=== PATIENT | male | born 1990 | race Caucasian/White ===

== ENCOUNTER 2016-12-31 16:46 | Emergency (ER) | payer MEDICAID, OTHER ==
[~2016-12-31] VITALS: Ht 170.2 cm; Wt 68.0 kg
[2016-12-31 17:02] VITALS: BP 109/65
--- NOTE | 2016-12-31 17:31 | Emergency Room Report ---
History of Present Illness General Chief Complaint: Flu Like Symptoms Source: Patient Present Illness HPI 26 YO male presents to the emergency department complaining of 5/10 in severity sore throat, and increased because production, cough, body aches, diarrhea x3 days. Patient states he began to notice some mild symptoms prior to returning home from recent [place] trip. Patient denies fevers or chills, denies neck pain or stiffness. Denies headache. He states he is not up-to-date with his most recent flu vaccination. He denies abdominal tenderness denies blood in the stool denies nausea or vomiting. Denies CP, Palpitations, LOC, AMS, dizziness, Changes in Vision, Sensation, paresthesias, or a sudden severe headache. Allergies: Coded Allergies: No Known Allergies (Unverified , 12/31/16) Patient History Past Medical History: see triage record Past Surgical History: none Pertinent Family History: none Immunizations: other - no flu this year Reviewed Nursing Documentation: PMH: Agreed, PSxH: Agreed Nursing Documentation-PMH Past Medical History: No Stated History Review of Systems All Other Systems: negative except mentioned in HPI Physical Exam Vital Signs Date Time Temp Pulse Resp B/P (MAP) Pulse Ox O2 Delivery O2 Flow Rate FiO2 12/31/16 17:02 98.8 78 20 109/65 98 Room Air Sp02 EP Interpretation: reviewed, normal General Appearance: no apparent distress, alert, GCS 15, non-toxic Head: normocephalic, atraumatic Eyes: bilateral eye normal inspection, bilateral eye PERRL ENT: hearing grossly normal, normal pharynx, no angioedema, normal voice, TMs + canals normal, uvula midline, moist mucus membranes, nasal congestion - clear rhinorrhea bilaterally, pharyngeal erythema, other - no exudates Neck: full range of motion, no meningismus, supple/symm/no masses Respiratory: chest non-tender, lungs clear, normal breath sounds, no respiratory distress, no wheezing, speaking full sentences Cardiovascular #1: regular rate, rhythm Gastrointestinal: normal bowel sounds, non tender, soft, no guarding, no rebound Rectal: deferred Genitourinary: normal inspection, no CVA tenderness Musculoskeletal: back normal, gait/station normal, normal range of motion, non- tender Neurologic: alert, oriented x3, responsive, motor strength/tone normal, sensory intact, speech normal Psychiatric: judgement/insight normal, memory normal, mood/affect normal Skin: normal color, no rash, warm/dry, well hydrated Lymphatic: no adenopathy Medical Decision Making PA Attestation Dr. victoria is my supervising Physician whom patient management has been discussed with. Diagnostic Impression: Primary Impression: Pharyngitis with viral syndrome ER Course Pt. presents to the ED c/o : sore throat, tonsillar swelling, and nasal congestion x 2 days Ddx considered but are not limited to: pharyngitis, strep, FITTER / WELDER, ludwigs angina, URI Vital signs: are WNL, pt. is afebrile H&PE are most consistent with: pharyngitis pwith viral syndrome, and enteritis, pt. has benign abdominal exam. he does not meet Centor criteria, and does not have meningeal signs. lungs are CTA bilaterally. ORDERS: None required at this time as the diagnosis is clinical ED INTERVENTIONS: none required at this time. --d/w pt. Bacterial Vs. Viral illnesses and over rx'ing of abx leading to bacterial resistance. DISCHARGE: At this time pt. is stable for d/c to home. Will provide printed patient care instructions, and any necessary prescriptions. Care plan and follow up instructions have been discussed with the patient prior to discharge. Last Vital Signs Date Time Temp Pulse Resp B/P (MAP) Pulse Ox O2 Delivery O2 Flow Rate FiO2 12/31/16 17:20 78 20 Room Air 12/31/16 17:02 98.8 109/65 98 Disposition: HOME, SELF-CARE Condition: Stable Scripts Guaifenesin (Guaifenesin) 1,200 Mg Tab.er.12h 1200 MG PO BID for 10 Days, #20 TAB Prov: Benita Miles P.ALilian 12/31/16 Dicyclomine Hcl* (BENTYL*) 10 Mg Capsule 10 MG ORAL FOUR TIMES A DAY for 3 Days, #9 CAP Prov: Benita Miles P.ALilian 12/31/16 Codeine/Promethazine Hcl* (PROMETHAZINE-CODEINE SYRUP*) 118 Ml Syrup 10 ML ORAL Q6H Y for For Cough, #240 ML 0 Refills Prov: Benita Miles.ALilian 12/31/16 Patient Instructions: Pharyngitis, Viral Respiratory Infection Additional Instructions: Take medications as directed. Follow up with a Primary Care Provider in 3-5 days, even if your symptoms have resolved. --Please review list of primary care clinics, if you do not already have a primary care provider Return sooner to ED if new symptoms occur, or current symptoms become worse. Do not drink alcohol, drive, or operate heavy machinery while taking Cough Syrup as this may cause drowsiness. - Please note that this Emergency Department Report was dictated using [employer] professional technology software, occasionally this can lead to erroneous entry secondary to interpretation by the dictation equipment. Benita Miles Dec 31, 2016 17:31
[2016-12-31] MEDS ORDERED: GUAIFENESIN1200 MG PO (17:32)
[2016-12-31] MEDS ORDERED: PROMETHAZINE-C118 M1 ORAL (17:32)
[2016-12-31] MEDS ORDERED: BENTYL10 MG ORAL (17:32)
[2016-12-31 18:17] VITALS: BP 109/65
== END 2016-12-31 18:20 | disposition home or self-care (01) ==
LOC: EDBD 16:46 → EMR 17:45
DX: J02.9 Acute pharyngitis, unspecified (principal); B34.9 Viral infection, unspecified; R19.7 Diarrhea, unspecified
CPT/HCPCS: 99284

== ENCOUNTER 2017-02-01 14:29 | Emergency (ER) | payer OTHER ==
[~2017-02-01] VITALS: Ht 170.2 cm; Wt 66.2 kg
[~2017-02-01 14:29] MED LIST: BENTYL10 MG ORAL; GUAIFENESIN1200 MG PO; PROMETHAZINE-C118 M1 ORAL
[2017-02-01 14:35] VITALS: BP 127/73
[2017-02-01] MEDS ORDERED: Lidocaine 2% Visc 15ml soln ORAL ONE (14:45)
[2017-02-01] MEDS ORDERED: Mylanta II UD 30ml ORAL ONE (14:45)
[2017-02-01] MEDS ORDERED: REGLAN10 MG ORAL (14:47)
[2017-02-01] MEDS ORDERED: PEPCID40 MG PO (14:47)
--- NOTE | 2017-02-01 14:52 | Emergency Room Report ---
History of Present Illness General Chief Complaint: Pain Source: Patient Present Illness HPI 26YOM walk-in with stomach "cramps" since yesterday morning Some nausea with gas and "indigestion." Drank "a lot" thursday night - mixed wine and tequilla. Eating makes it worse No other med/surg problems No fever/chills, urinary complaints, foreign travel Allergies: Coded Allergies: No Known Allergies (Unverified , 12/31/16) Patient History Past Medical History: none Past Surgical History: none Pertinent Family History: none Social History: Denies: smoking, alcohol use, drug use Immunizations: UTD Reviewed Nursing Documentation: PMH: Agreed, PSxH: Agreed Nursing Documentation-PMH Past Medical History: No Stated History Hx Cardiac Problems: No Review of Systems All Other Systems: negative except mentioned in HPI Physical Exam Vital Signs Date Time Temp Pulse Resp B/P (MAP) Pulse Ox O2 Delivery O2 Flow Rate FiO2 02/01/17 14:31 98.1 73 18 127/73 96 Room Air Sp02 EP Interpretation: reviewed, normal General Appearance: normal inspection, well appearing, no apparent distress, alert, GCS 15, non-toxic Head: normocephalic, atraumatic Eyes: bilateral eye PERRL, bilateral eye EOMI ENT: normal ENT inspection, hearing grossly normal, normal voice Neck: normal inspection, full range of motion, supple, no bony tend Respiratory: normal inspection, lungs clear, normal breath sounds, no respiratory distress, no retraction, no wheezing Cardiovascular #1: regular rate, rhythm, no edema Gastrointestinal: normal inspection, normal bowel sounds, non tender, soft, no guarding, no hernia Genitourinary: no CVA tenderness Musculoskeletal: normal inspection, back normal, normal range of motion, Marisabel' s Sign negative Neurologic: normal inspection, alert, responsive, speech normal Psychiatric: normal inspection, judgement/insight normal, mood/affect normal Skin: normal inspection, normal color, no rash Medical Decision Making Diagnostic Impression: Primary Impression: Gastritis Qualified Codes: K29.20 - Alcoholic gastritis without bleeding ER Course Likely acute ETOH gastritis VSS. Afebrile Abdomen non focal on serial exam No surgical risk factors Low suspicion for acute bacterial/surgical process requiring additional lab work , imaging, admission and/or surgical evaluation at this time given well appearing, non-focal abd on serial exam, stable vital signs, and tolerating PO. In shared decision making process with patient, understands to return to ER for worsening symptoms and to followup with PMD in reasonable amount of time, 2-3 days. Improved with GI cocktail in ED Rx reglan, pepcid PMD followup Return to ER for worsening symptoms Last Vital Signs Date Time Temp Pulse Resp B/P (MAP) Pulse Ox O2 Delivery O2 Flow Rate FiO2 02/01/17 14:31 98.1 73 18 127/73 96 Room Air Status: improved Disposition: HOME, SELF-CARE Condition: Improved Scripts Famotidine (PEPCID) 40 Mg Tablet 40 MG PO DAILY for 7 Days, #7 TAB 0 Refills Prov: PRIYANKA BRAVO M.D. 02/01/17 Metoclopramide Hcl* (REGLAN*) 10 Mg Tablet 10 MG ORAL BID for 7 Days, #14 TAB Prov: PRIYANKA BRAVO M.D. 02/01/17 Patient Instructions: Gastritis, Adult, [id number] Additional Instructions: - Drink water/miladis star ONLY today - Start bland food tomorrow, crackers, chicken broth ONLY until you feel completel better - Take Pepcid 40mg each morning for 7 days or until you feel better - Take reglan as needed for nausea - Follow up with your PRIMARY DOCTOR in 2-3 days as needed - Return to ER for severe abdominal pain located on ONE side of your abdomen, fever/chills, vomiting that do NOT resolve with medication PRIYANKA BRAVO M.D. Feb 01, 2017 14:52
[2017-02-01 14:55] VITALS: BP 127/73
== END 2017-02-01 15:15 | disposition home or self-care (01) ==
LOC: EMR 14:42
DX: K29.70 Gastritis, unspecified, without bleeding (principal)
CPT/HCPCS: 99284

== ENCOUNTER 2017-02-04 10:43 | Emergency (ER) | payer OTHER ==
[~2017-02-04] VITALS: Ht 170.2 cm; Wt 68.0 kg
[~2017-02-04 10:43] MED LIST changes: +PEPCID40 MG PO; +REGLAN10 MG ORAL
[2017-02-04 10:49] VITALS: BP 109/55
[2017-02-04 12:00] VITALS: BP 109/55
--- NOTE | 2017-02-05 09:12 | Emergency Room Report ---
History of Present Illness General Chief Complaint: Sore Throat Source: Patient, Medical Record Present Illness HPI 26 yo M nos ig pmhx p/w sore throat x 2 days. hurts when he swallows however has been able to tolerate po without issue. no fever or chills. no change in voice. no sick contacts Allergies: Coded Allergies: No Known Allergies (Unverified , 12/31/16) Patient History Past Medical History: see triage record Past Surgical History: none Pertinent Family History: none Reviewed Nursing Documentation: PMH: Agreed, PSxH: Agreed Nursing Documentation-PMH Past Medical History: No Stated History Hx Cardiac Problems: No Review of Systems All Other Systems: negative except mentioned in HPI Physical Exam Vital Signs Date Time Temp Pulse Resp B/P (MAP) Pulse Ox O2 Delivery O2 Flow Rate FiO2 02/04/17 10:46 97.7 69 18 109/55 99 Room Air Sp02 EP Interpretation: reviewed, normal General Appearance: normal inspection, well appearing, no apparent distress, alert, GCS 15, non-toxic Head: normocephalic, atraumatic Eyes: bilateral eye normal inspection, bilateral eye PERRL, bilateral eye EOMI ENT: normal voice, moist mucus membranes, pharyngeal erythema, other - erythema no exudates. no signs of riverboat captain Neck: normal inspection, full range of motion, supple Respiratory: normal inspection, lungs clear, normal breath sounds, no respiratory distress, no retraction, no wheezing, speaking full sentences, chest symmetrical Cardiovascular #1: normal inspection, regular rate, rhythm, no edema, normal capillary refill Cardiovascular #2: 2+ radial (R), 2+ radial (L) Gastrointestinal: normal inspection, non tender, soft, non-distended, no guarding Musculoskeletal: normal inspection, back normal, normal range of motion, non- tender Neurologic: normal inspection, alert, oriented x3, responsive, motor strength/ tone normal, sensory intact, normal gait, speech normal Psychiatric: normal inspection, judgement/insight normal, memory normal Skin: normal inspection, normal color, no rash, warm/dry, well hydrated, normal turgor Medical Decision Making Diagnostic Impression: Primary Impression: Viral pharyngitis ER Course 26 yo M with sore throat x 2 days likely viral pharyngitis, clinically does not appear to be bacterial, no signs of riverboat captain not c/w RPA no pain with extension/movement of neck. nontoxic ER course: patient prescribed motrin but left before meds can be given or discharge papers to be given Dispo: Eloped after physician eval Last Vital Signs Date Time Temp Pulse Resp B/P (MAP) Pulse Ox O2 Delivery O2 Flow Rate FiO2 02/04/17 10:49 97.7 18 109/55 99 Room Air 02/04/17 10:46 69 Disposition: ELOPED Condition: Stable Patient Instructions: Sore Throat Shilpa Appiah M.D. Feb 05, 2017 09:12
== END 2017-02-04 12:00 | disposition home or self-care (01) ==
LOC: EMR 11:16
DX: J02.8 Acute pharyngitis due to other specified organisms (principal); B97.89 Other viral agents as the cause of diseases classified elsewhere
CPT/HCPCS: 99282

== ENCOUNTER 2017-04-23 12:24 | Emergency (ER) | payer MEDICAID, OTHER ==
[~2017-04-23] VITALS: Ht 170.2 cm; Wt 74.4 kg
[2017-04-23] MEDS ORDERED: NKM (12:33)
[2017-04-23] MEDS ORDERED: IBUPROFEN600 MG ORAL (12:57)
[2017-04-23] MEDS ORDERED: TAMIFLU75 MG ORAL (12:57)
[2017-04-23] MEDS ORDERED: Lidocaine 2% Visc 15ml soln ORAL ONE (13:00)
[2017-04-23 13:24] VITALS: BP 105/65
--- NOTE | 2017-04-24 13:06 | Emergency Room Report ---
History of Present Illness General Chief Complaint: Sore Throat Source: Patient Present Illness HPI 26 yo male presents to ED complaining of flu-like symptoms x1 day. Patient complains of subjective fever, sore throat, generalized fatigue, and nausea. Patient complains of dry cough and SWANSON during this time. Patient denies recent travel. Patient denies neck stiffness. Patient denies history of sick contacts living in the same house. Patient denies vomiting, diarrhea, chest pain, SOB, rash. Allergies: Coded Allergies: No Known Allergies (Unverified , 12/31/16) Patient History Past Medical History: see triage record Social History: Denies: smoking, alcohol use, drug use Immunizations: UTD Reviewed Nursing Documentation: PMH: Agreed, PSxH: Agreed Nursing Documentation-PMH Past Medical History: No Stated History Hx Cardiac Problems: No Review of Systems All Other Systems: negative except mentioned in HPI Physical Exam Vital Signs Date Time Temp Pulse Resp B/P (MAP) Pulse Ox O2 Delivery O2 Flow Rate FiO2 04/23/17 12:28 100.2 98 14 107/63 100 Room Air Sp02 EP Interpretation: reviewed, normal General Appearance: alert, GCS 15, non-toxic, mild distress Head: normocephalic, atraumatic Eyes: bilateral eye normal inspection, bilateral eye PERRL, bilateral eye EOMI ENT: hearing grossly normal, normal pharynx, no angioedema, normal voice, TMs + canals normal, uvula midline, moist mucus membranes, pharyngeal erythema Neck: full range of motion, supple/symm/no masses Respiratory: chest non-tender, lungs clear, normal breath sounds, no respiratory distress, no retraction, no accessory muscle use, no wheezing, speaking full sentences Cardiovascular #1: regular rate, rhythm, no murmur, no rub Gastrointestinal: non tender, soft, non-distended, no guarding, no rebound Musculoskeletal: digits/nails normal, gait/station normal, normal range of motion, non-tender Neurologic: alert, oriented x3, responsive, motor strength/tone normal, sensory intact, speech normal Psychiatric: mood/affect normal Skin: normal color, no rash, warm/dry, well hydrated Lymphatic: no adenopathy Medical Decision Making PA Attestation Dr. Appiah is my supervising physician with whom patient management has been discussed with. Diagnostic Impression: Primary Impression: Viral upper respiratory illness ER Course Pt presents to ED c/o flu-like symptoms. DDX considered but are not limited to influenza, viral URI, pneumonia, strep throat, rhinitis, sinusitis, otitis media. VITAL SIGNS are WNL, patient is afebrile. ORDERS: None required at this time, diagnosis is clinical. ED INTERVENTIONS: Viscous lidocaine Ibuprofen Zofran DISCHARGE: At this time pt is stable for d/c to home. -Rx given for Motrin/Ibuprofen for fever/pain. -Rx given for Tamiflu for influenza. Patient to take medications as instructed Will provide with patient care instructions and any necessary prescriptions. Care plan and follow-up instructions provided. Patient instructed to follow-up with primary care provider in 3 - 5 days. Patient questions asked and answered. ER precautions given. Patient instructed to return to ER immediately for any new or worsening of symptoms including but not limited to increasing SOB, persistent fever. Last Vital Signs Date Time Temp Pulse Resp B/P (MAP) Pulse Ox O2 Delivery O2 Flow Rate FiO2 04/23/17 13:24 86 18 105/65 97 Room Air 04/23/17 13:24 98.3 Disposition: HOME, SELF-CARE Condition: Stable Scripts Oseltamivir Phosphate (Tamiflu) 75 Mg Capsule 75 MG ORAL TWICE A DAY for 5 Days, #10 CAP Prov: Nate Armijo 04/23/17 Ibuprofen* (MOTRIN*) 600 Mg Tablet 600 MG ORAL Q8H Y for For Pain, #30 TAB 0 Refills Prov: Nate Armijo 04/23/17 Referrals: [facility],REFERRIN (PCP) Patient Instructions: Influenza, Adult, [id number] Additional Instructions: Patient to take medications as instructed Will provide with patient care instructions and any necessary prescriptions. Care plan and follow-up instructions provided. Patient instructed to follow-up with primary care provider in 3 - 5 days. Patient questions asked and answered. ER precautions given. Patient instructed to return to ER immediately for any new or worsening of symptoms including but not limited to increasing SOB, persistent fever. Nate Armijo Apr 24, 2017 13:06
[2017-04-24] MEDS ORDERED: AMOXICILLIN500 MG ORAL (14:25)
[2017-04-24] MEDS ORDERED: TYLENOL EXTRA500 MG ORAL (14:28)
== END 2017-04-23 13:26 | disposition home or self-care (01) ==
LOC: EMR 12:55
DX: J06.9 Acute upper respiratory infection, unspecified (principal); B34.9 Viral infection, unspecified
CPT/HCPCS: 99283

== ENCOUNTER 2017-04-24 13:45 | Emergency (ER) | payer MEDICAID, OTHER ==
[~2017-04-24] VITALS: Ht 170.2 cm; Wt 72.6 kg
[~2017-04-24 13:45] MED LIST changes: +IBUPROFEN600 MG ORAL; +NKM; +TAMIFLU75 MG ORAL
[2017-04-24 13:56] VITALS: BP 110/67
[2017-04-24] MEDS ORDERED: Ketorolac 60mg Inj IM ONE (14:15)
[2017-04-24] MEDS ORDERED: AMOXICILLIN500 MG ORAL (14:25)
[2017-04-24] MEDS ORDERED: TYLENOL EXTRA500 MG ORAL (14:28)
[2017-04-24 14:30] VITALS: BP 110/67
--- NOTE | 2017-04-24 15:26 | Emergency Room Report ---
History of Present Illness General Chief Complaint: Sore Throat Source: Patient Present Illness [facility] The patient is a 26-year-old male presenting for continued sore throat and cough. He was seen in this emergency Department yesterday for the same complaints and diagnosed with influenza. Pain is a 9/10 dull ache to the back of the throat and does not radiate. Worse with swallowing. He also admits to some nausea and fevers. Symptoms have been present for the past week. He denies any known sick contacts or recent travel. He denies other symptoms including hemoptysis, shortness of breath, chest pain, abdominal pain, myalgia, headache, fatigue Allergies: Coded Allergies: No Known Allergies (Unverified , 12/31/16) Patient History Past Medical History: see triage record Pertinent Family History: none Reviewed Nursing Documentation: PMH: Agreed, PSxH: Agreed Nursing Documentation-PMH Past Medical History: No Stated History Hx Cardiac Problems: No Review of Systems All Other Systems: negative except mentioned in HPI Physical Exam Vital Signs Date Time Temp Pulse Resp B/P (MAP) Pulse Ox O2 Delivery O2 Flow Rate FiO2 04/24/17 13:49 99.7 106 18 110/69 96 Room Air Sp02 EP Interpretation: reviewed, normal General Appearance: no apparent distress, alert, GCS 15, non-toxic Head: normocephalic, atraumatic Eyes: bilateral eye normal inspection, bilateral eye PERRL ENT: hearing grossly normal, no angioedema, normal voice, uvula midline, tonsillar swelling, pharyngeal erythema, tonsillar exudate Neck: full range of motion, supple/symm/no masses Respiratory: chest non-tender, lungs clear, normal breath sounds, speaking full sentences Cardiovascular #1: regular rate, rhythm, no edema Musculoskeletal: back normal, gait/station normal, normal range of motion, non- tender, calf tenderness Neurologic: alert, oriented x3, responsive, motor strength/tone normal, sensory intact, speech normal Psychiatric: judgement/insight normal, memory normal, mood/affect normal, no suicidal/homicidal ideation Skin: normal color, no rash, warm/dry, well hydrated Lymphatic: adenopathy Medical Decision Making PA Attestation Dr. Aviles is my supervising physician. Patient management was discussed with my supervising physician Diagnostic Impression: Primary Impression: Pharyngitis, acute Qualified Codes: J02.9 - Acute pharyngitis, unspecified ER Course The patient is a 26-year-old male presenting for continued sore throat and cough. Differential diagnosis include but not limited to pharyngitis, sinusitis, AOM, bronchitis, PNA Physical exam: Vitals within normal limits. febrile. No apparent distress HEENT exam: There is bilateral tonsillar edema, erythema, and exudate. Uvula midline. Moist mucous membranes. There is bilateral cervical lymphadenopathy. Lungs are clear to auscultation bilaterally Skin is warm and dry. No rash The patient will stop taking Tamiflu as this is unlikely to be influenza He is given IM Toradol, amoxicillin and Zofran and is feeling better. The patient will be discharged home with a prescription for amoxicillin and is given ER precautions. Patient will followup with primary care Last Vital Signs Date Time Temp Pulse Resp B/P (MAP) Pulse Ox O2 Delivery O2 Flow Rate FiO2 04/24/17 14:30 99.7 72 18 110/67 96 Room Air Status: improved Disposition: HOME, SELF-CARE Condition: Improved Scripts Acetaminophen* (TYLENOL EXTRA STRENGTH*) 500 Mg Tablet 500 MG ORAL Q8H Y for Prn Headache/Temp > 101, #30 TAB 0 Refills Prov: GOLD CHAPPELL. 04/24/17 Amoxicillin* (AMOXIL*) 500 Mg Capsule 500 MG ORAL Q12HR, #20 CAP Prov: GOLD CHAPPELL.A. 04/24/17 Referrals: [facility],REFERRIN (PCP) Patient Instructions: Pharyngitis, Sore Throat Additional Instructions: I discussed my findings with the patient. All questions and concerns have been answered. Treatment and medication compliance have been addressed. I advised the patient that they need to follow up with PMD in 3-5 days. Return to ED if pain remains or worsens, cough worsens or remains, you notice blood in your sputum, you notice wheezing, you experience a fever, or if needed for any reason. Patient verbalized understanding of discharge instructions. GOLD CHAPPELL Apr 24, 2017 15:26
== END 2017-04-24 14:30 | disposition home or self-care (01) ==
LOC: EMR 14:18
DX: J02.9 Acute pharyngitis, unspecified (principal)
CPT/HCPCS: 96372; 99284

== ENCOUNTER 2017-06-05 10:24 | Emergency (ER) | payer MEDICAID, OTHER ==
[~2017-06-05] VITALS: Ht 170.2 cm; Wt 72.6 kg
[~2017-06-05 10:24] MED LIST changes: +AMOXICILLIN500 MG ORAL; +TYLENOL EXTRA500 MG ORAL
[2017-06-05 10:47] VITALS: BP 121/73
[2017-06-05 11:30] LABS: BASOPHILS % (AUTO) 0.7 % (0.0-2.0); EOSINOPHILS % (AUTO) 0.1 % (0.0-3.0); HEMATOCRIT 47.4 % (42.0-52.0); HEMOGLOBIN 16.9 G/DL (14.2-18.0); LYMPHOCYTES % (AUTO) 14.7 % (20.0-45.0); MEAN CORPUSCULAR VOLUME 89 FL (80-99); NEUTROPHILS % (AUTO) 78.5 % (45.0-75.0); PLATELET COUNT 191 K/UL (150-450); RED BLOOD COUNT 5.33 M/UL (4.70-6.10); RED CELL DISTRIBUTION WIDTH 11.6 % (11.6-14.8); WHITE BLOOD COUNT 9.6 K/UL (4.8-10.8)
[2017-06-05 11:44] LABS: ANION GAP 6 mmol/L (5-15); BLOOD UREA NITROGEN 10 mg/dL (7-18); CALCIUM 9.2 MG/DL (8.5-10.1); CARBON DIOXIDE 33 MMOL/L (21-32); CHLORIDE 103 MMOL/L (98-107); CREATININE 0.8 MG/DL (0.55-1.30); POTASSIUM 4.1 MMOL/L (3.5-5.1); SODIUM 142 MMOL/L (136-145)
[2017-06-05 11:48] LABS: ALANINE AMINOTRANSFERASE 41 U/L (12-78); ALBUMIN 4.3 G/DL (3.4-5.0); ALBUMIN/GLOBULIN RATIO 1.3 (1.0-2.7); ALKALINE PHOSPHATASE 64 U/L (46-116); ASPARTATE AMINO TRANSFERASE 29 U/L (15-37); BILIRUBIN,TOTAL 0.6 MG/DL (0.2-1.0)
[2017-06-05] MEDS ORDERED: ZANTAC150 MG ORAL (12:06)
[2017-06-05] MEDS ORDERED: ZOFRAN ODT4 MG ORAL (12:06)
[2017-06-05 12:17] VITALS: BP 120/61
--- NOTE | 2017-06-06 13:54 | Emergency Room Report ---
History of Present Illness General Chief Complaint: Nausea Source: Patient Present Illness HPI 26-year-old male presents ED for evaluation. Patient states that he drank a lot of wine last night and today he feels very nauseous and weak. Patient also notes vomiting this morning. Denies any abdominal pain. Denies any drug use. Denies chest pain or shortness of breath. No other aggravating or relieving factors. Denies any other associated symptoms Allergies: Coded Allergies: No Known Allergies (Unverified , 12/31/16) Patient History Past Medical History: none Past Surgical History: none Pertinent Family History: none Social History: Reports: alcohol use, Denies: smoking, drug use Immunizations: UTD Reviewed Nursing Documentation: PMH: Agreed, PSxH: Agreed Nursing Documentation-PMH Past Medical History: No Stated History Hx Cardiac Problems: No Review of Systems All Other Systems: negative except mentioned in HPI Physical Exam Vital Signs Date Time Temp Pulse Resp B/P (MAP) Pulse Ox O2 Delivery O2 Flow Rate FiO2 06/05/17 10:25 98.6 97 18 110/72 97 Room Air 98.6 Sp02 EP Interpretation: reviewed, normal General Appearance: no apparent distress, alert, GCS 15, non-toxic Head: normocephalic, atraumatic Eyes: bilateral eye normal inspection, bilateral eye PERRL ENT: hearing grossly normal, normal pharynx, no angioedema, normal voice Neck: full range of motion, supple/symm/no masses Respiratory: chest non-tender, lungs clear, normal breath sounds, speaking full sentences Cardiovascular #1: regular rate, rhythm, no edema Cardiovascular #2: 2+ carotid (R), 2+ carotid (L), 2+ radial (R), 2+ radial (L) , 2+ dorsalis pedis (R), 2+ dorsalis pedis (L) Gastrointestinal: normal bowel sounds, non tender, soft, non-distended, no guarding, no rebound Rectal: deferred Genitourinary: normal inspection, no CVA tenderness Musculoskeletal: back normal, gait/station normal, normal range of motion, non- tender Neurologic: alert, oriented x3, responsive, motor strength/tone normal, sensory intact, speech normal Psychiatric: judgement/insight normal, memory normal, mood/affect normal, no suicidal/homicidal ideation Reflexes: 3+ bicep (R), 3+ bicep (L), 3+ tricep (R), 3+ tricep (L), 3+ knee (R) , 3+ knee (L) Skin: normal color, no rash, warm/dry, well hydrated Lymphatic: no adenopathy Medical Decision Making Diagnostic Impression: Primary Impression: Gastritis Qualified Codes: K29.20 - Alcoholic gastritis without bleeding ER Course Hospital Course 26-year-old M presents to ED with N/V after drinking wine last night differential diagnosis: gastritis, SBO, cholecystits Clinical course Patient placed on stretcher. On vehicle monitor technician. After initial history and physical I ordered labs, IV fluids, Zofran and pepcid Labs - no leukocytosis, no electrolyte abnormalities, LFTs normal Upon reassessment, patient states pain has improved. findings consistent with gastritis I feel this is a highly complex case requiring extensive working including EKG/ Rhythm strip, Xray/CT/US, Blood/urine lab work, repeat exams while in ED, and administration of strong opiates/narcotics for pain control, admission to hospital or close patient follow up. Diagnosis - gastritis Stable and discharged to home with prescriptions for Zantac, zofran. Followup with PMD. Return to ED if symptoms recur or worsen Labs Test 06/05/17 11:16 White Blood Count 9.6 K/UL (4.8-10.8) Red Blood Count 5.33 M/UL (4.70-6.10) Hemoglobin 16.9 G/DL (14.2-18.0) Hematocrit 47.4 % (42.0-52.0) Mean Corpuscular Volume 89 FL (80-99) Mean Corpuscular Hemoglobin 31.7 PG (27.0-31.0) Mean Corpuscular Hemoglobin Concent 35.6 G/DL (32.0-36.0) Red Cell Distribution Width 11.6 % (11.6-14.8) Platelet Count 191 K/UL (150-450) Mean Platelet Volume 8.7 FL (6.5-10.1) Neutrophils (%) (Auto) 78.5 % (45.0-75.0) Lymphocytes (%) (Auto) 14.7 % (20.0-45.0) Monocytes (%) (Auto) 6.0 % (1.0-10.0) Eosinophils (%) (Auto) 0.1 % (0.0-3.0) Basophils (%) (Auto) 0.7 % (0.0-2.0) Sodium Level 142 MMOL/L (136-145) Potassium Level 4.1 MMOL/L (3.5-5.1) Chloride Level 103 MMOL/L (98-107) Carbon Dioxide Level 33 MMOL/L (21-32) Anion Gap 6 mmol/L (5-15) Blood Urea Nitrogen 10 mg/dL (7-18) Creatinine 0.8 MG/DL (0.55-1.30) Estimat Glomerular Filtration Rate > 60 mL/min (>60) Glucose Level 74 MG/DL (74-106) Calcium Level 9.2 MG/DL (8.5-10.1) Total Bilirubin 0.6 MG/DL (0.2-1.0) Aspartate Amino Transf (AST/SGOT) 29 U/L (15-37) Alanine Aminotransferase (ALT/SGPT) 41 U/L (12-78) Alkaline Phosphatase 64 U/L (46-116) Total Protein 7.6 G/DL (6.4-8.2) Albumin 4.3 G/DL (3.4-5.0) Globulin 3.3 g/dL Albumin/Globulin Ratio 1.3 (1.0-2.7) Lipase 100 U/L (73-393) Last Vital Signs Date Time Temp Pulse Resp B/P (MAP) Pulse Ox O2 Delivery O2 Flow Rate FiO2 06/05/17 12:17 100 26 120/61 100 Room Air 06/05/17 11:47 98.3 Status: improved Disposition: HOME, SELF-CARE Condition: Stable Scripts Ondansetron Odt* (ZOFRAN ODT*) 4 Mg Tab.rapdis 4 MG ORAL Q6H Y for Nausea & Vomiting, #30 TAB 0 Refills Prov: LE OLVERA M.D. 06/05/17 Ranitidine Hcl* (ZANTAC*) 150 Mg Tablet 150 MG ORAL DAILY, #30 TAB 0 Refills Prov: LE OLVERA M.D. 06/05/17 Referrals: NOT CHOSEN [facility]/,REFERRING Patient Instructions: Gastritis, Adult, [id number] LE OLVERA M.D. Jun 06, 2017 13:54
== END 2017-06-05 12:20 | disposition home or self-care (01) ==
LOC: EMR 11:18
DX: K29.70 Gastritis, unspecified, without bleeding (principal)
CPT/HCPCS: 36415; 80053; 83690; 85025; 96361; 96374; 96375; 99284; J2405; S0028

== ENCOUNTER 2017-07-19 13:15 | Emergency (ER) | payer MEDICAID, OTHER ==
[~2017-07-19] VITALS: Ht 170.2 cm; Wt 77.1 kg
[~2017-07-19 13:15] MED LIST changes: +ZANTAC150 MG ORAL; +ZOFRAN ODT4 MG ORAL
[2017-07-19] MEDS ORDERED: Norco 5mg/325mg tab ORAL ONE (14:30)
[2017-07-19] MEDS ORDERED: NORCO 5-325 TA1 EAC1 ORAL (15:05)
[2017-07-19] MEDS ORDERED: IBUPROFEN600 MG ORAL (15:05)
[2017-07-19 15:15] VITALS: BP 118/74
[2017-07-19 15:16] VITALS: BP 118/74
--- NOTE | 2017-07-19 20:07 | Emergency Room Report ---
History of Present Illness General Chief Complaint: Pain Source: Patient Present Illness [facility] The patient is a 27-year-old male presenting for right shoulder pain. He states that this began yesterday for no apparent reason. He denies any recent physical activity that may have caused it. Pain is a 10 out of 10 dull ache and does not radiate. Worse with movement and touch. he has tried Motrin and Tylenol which does not help. He denies previous shoulder injury. He denies any other symptoms including N, V, F, chills, abd pain, CP, SOB Allergies: Coded Allergies: No Known Allergies (Unverified , 12/31/16) Patient History Past Medical History: see triage record Pertinent Family History: none Reviewed Nursing Documentation: PMH: Agreed; PSxH: Agreed Nursing Documentation-PMH Hx Cardiac Problems: No Review of Systems All Other Systems: negative except mentioned in HPI Physical Exam Vital Signs Date Time Temp Pulse Resp B/P (MAP) Pulse Ox O2 Delivery O2 Flow Rate FiO2 07/19/17 13:18 98.3 80 17 115/75 95 Room Air 98.2 Sp02 EP Interpretation: reviewed, normal General Appearance: no apparent distress, alert, GCS 15, non-toxic Head: normocephalic, atraumatic Eyes: bilateral eye normal inspection, bilateral eye PERRL ENT: hearing grossly normal, normal pharynx, no angioedema, normal voice Neck: full range of motion, supple/symm/no masses Respiratory: chest non-tender, lungs clear, normal breath sounds, speaking full sentences Cardiovascular #1: regular rate, rhythm, no edema Musculoskeletal: normal inspection, back normal, gait/station normal, normal range of motion, tender - R anterior and lateral deltoid Neurologic: alert, oriented x3, responsive, motor strength/tone normal, sensory intact, speech normal Psychiatric: judgement/insight normal, memory normal, mood/affect normal, no suicidal/homicidal ideation Skin: normal color, no rash, warm/dry, well hydrated Procedures Splinting Splinting : Consent: Verbal Location: R shoulder Pre-Made Type: sling Pre-Proc Neuro Vasc Exam: normal Post-Proc Neuro Vasc Exam: normal Patient Tolerated: Well Complications: None Medical Decision Making PA Attestation Dr. Zamudio is my supervising physician. Patient management was discussed with my supervising physician Diagnostic Impression: Primary Impression: Shoulder pain, right Qualified Codes: M25.511 - Pain in right shoulder ER Course The patient is a 27-year-old male presenting for right shoulder pain. Ddx considered include but not limited to sprain/strain, fracture, contusion, RTC injury, among others PE: NAD Right shoulder: No deformity. Skin warm and dry. No rash There is tenderness to palpation over the lateral and anterior aspect. Full active range of motion is intact Xray of R shoulder shows no acute findings. He is given pain medication and will be DC'ed home He was told he will likely need MRI for further eval. Other X-Ray Diagnostic Results Other X-Ray Diagnostic Results : X-Ray ordered: R shoulder # of Views/Limited Vs Complete: 3 View Indication: Pain EP Interpretation: Yes PA Xray: Interpretation reviewed, by supervising MD, and agrees with findings. Interpretation: no dislocation, no soft tissue swelling, no fractures Impression: No acute disease Electronically Signed by: Saurav Chappell PA-C Last Vital Signs Date Time Temp Pulse Resp B/P (MAP) Pulse Ox O2 Delivery O2 Flow Rate FiO2 07/19/17 15:16 98.0 69 17 118/74 97 Room Air 98.0 Status: improved Disposition: HOME, SELF-CARE Condition: Improved Scripts Hydrocodone Bit/Acetaminophen 5-325* (NORCO 5-325 TABLET*) 1 Each Tablet 1 TAB ORAL Q6HR PRN for For Pain, #10 TAB Prov: SAURAV CHAPPELL P.A. 07/19/17 Ibuprofen* (MOTRIN*) 600 Mg Tablet 600 MG ORAL Q6H PRN for For Pain, #30 TAB Prov: SAURAV CHAPPELL P.A. 07/19/17 Referrals: [facility],REFERRING (PCP) Patient Instructions: Shoulder Pain Additional Instructions: I discussed my findings with the patient. All questions and concerns have been answered. Treatment and medication compliance have been addressed. I advised the patient that they need to follow up with PMD in 3-5 days. Return to ED if pain remains or worsens, numbness or tingling occurs, new rash is noticed, fever is noticed, or if needed for any reason. Patient verbalized understanding of discharge instructions. SAURAV CHAPPELL Jul 19, 2017 20:07
--- NOTE | 2017-07-20 08:40 | Diagnostic Imaging Report ---
Indication: Shoulder pain Technique: 3 views of the right shoulder Comparison: none Findings: No acute fractures. No dislocations. There is calcific tendinosis of the rotator cuff Impression: No acute process
== END 2017-07-19 15:17 | disposition home or self-care (01) ==
LOC: EMR 15:08
DX: M25.511 Pain in right shoulder (principal)
CPT/HCPCS: 99284

== ENCOUNTER 2017-12-24 08:57 | Emergency (ER) | payer BC, MEDICAID ==
[~2017-12-24] VITALS: Ht 170.2 cm; Wt 79.4 kg
[~2017-12-24 08:57] MED LIST changes: +NORCO 5-325 TA1 EAC1 ORAL
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
--- NOTE | 2017-12-24 09:44 | Diagnostic Imaging Report ---
Indications: Right knee pain, trauma Technique: Three views of the right knee Comparison: None Findings: No acute fractures. No dislocations. Joint spaces are preserved. No radiopaque foreign body. Normal mineralization. Impression: No acute process
[2017-12-24] MEDS ORDERED: BENADRYL25 MG ORAL (11:22)
[2017-12-24] MEDS ORDERED: IBUPROFEN600 MG ORAL (11:22)
[2017-12-24] MEDS ORDERED: GUAIFENESIN DM118 M1 ORAL (11:22)
[2017-12-24] MEDS ORDERED: CLOTRIMAZOLE15 GM TOPIC (11:22)
[2017-12-24] MEDS ORDERED: BACITRACIN15 GM TOPIC (11:22)
[2017-12-24 11:31] VITALS: BP 117/77
== END 2017-12-24 11:33 | disposition home or self-care (01) ==
LOC: EMR 09:25
DX: S89.81XA Other specified injuries of right lower leg, initial encounter (principal); S80.01XA Contusion of right knee, initial encounter; M25.561 Pain in right knee; J40 Bronchitis, not specified as acute or chronic; B35.6 Tinea cruris; W22.8XXA Striking against or struck by other objects, initial encounter; Y93.9 Activity, unspecified; Y92.488 Other paved roadways as the place of occurrence of the external cause; Y99.9 Unspecified external cause status
CPT/HCPCS: 99283

== ENCOUNTER 2018-02-12 11:46 | Emergency (ER) | payer MEDICAID ==
[~2018-02-12] VITALS: Ht 170.2 cm; Wt 74.8 kg
[~2018-02-12 11:46] MED LIST changes: +BACITRACIN15 GM TOPIC; +BENADRYL25 MG ORAL; +CLOTRIMAZOLE15 GM TOPIC; +GUAIFENESIN DM118 M1 ORAL
[2018-02-12 11:55] VITALS: BP 107/70
[2018-02-12] MEDS ORDERED: NKM (12:01)
[2018-02-12] MEDS ORDERED: ANTI-ITCH28 G1 TP (12:36)
[2018-02-12] MEDS ORDERED: CEPHALEXIN500 MG ORAL (12:36)
--- NOTE | 2018-02-12 12:38 | Emergency Room Report ---
History of Present Illness General Chief Complaint: Skin Rash/Abscess Source: Patient Present Illness HPI 27-year-old male patient presents ER complaining of rash on his anus for the past 8 months. Patient reports that the rash has been there intermittently. Reports waxes and wanes in terms of pruritus and pain symptoms. Reports feeling "bumps". Reports that he has tried "every jock itch medication" without complete relief of symptoms, does not remember names of medications. Reports has not seen his doctor her primary care provider due to insurance problems [place]. Denies fever, chest pain, shortness of breath. Denies blood in stool. Denies diarrhea or constipation. Denies abdominal pain. Able to ambulate without difficulty. Contrary to triage report, has been present for longer than 1 month. Allergies: Coded Allergies: No Known Allergies (Unverified , 12/31/16) Patient History Past Medical History: see triage record Reviewed Nursing Documentation: PMH: Agreed; PSxH: Agreed Nursing Documentation-PMH Past Medical History: No Stated History Hx Cardiac Problems: No Review of Systems All Other Systems: negative except mentioned in HPI Physical Exam Vital Signs Date Time Temp Pulse Resp B/P (MAP) Pulse Ox O2 Delivery O2 Flow Rate FiO2 02/12/18 11:55 98.2 80 18 107/70 95 Room Air Sp02 EP Interpretation: reviewed, normal General Appearance: well appearing, no apparent distress, alert, GCS 15, non- toxic Head: normocephalic, atraumatic Eyes: bilateral eye normal inspection, bilateral eye PERRL ENT: hearing grossly normal, normal pharynx, no angioedema, normal voice, uvula midline, moist mucus membranes Neck: full range of motion Respiratory: lungs clear, normal breath sounds, no rhonchi, no respiratory distress, no accessory muscle use, no wheezing, speaking full sentences Cardiovascular #1: regular rate, rhythm, no edema Rectal: deferred, other - no visible hemorrhoids, no anal fissure Musculoskeletal: back normal, digits/nails normal, gait/station normal, normal range of motion, non-tender Neurologic: alert, oriented x3, responsive, motor strength/tone normal, sensory intact Skin: other - anus: Mild erythema with excoriations, no edema, no central clearing, no scaling, no edemea, no palpable mass, no red streaking, no crepitus Medical Decision Making PA Attestation Dr. Mcgowan is my supervising Physician whom patient management has been discussed with. Diagnostic Impression: Primary Impression: Pruritus ani ER Course Pt. presents to the ED c/o rash on anus x8 moths. Ddx considered but are not limited to atopic dermatitis, scabies, shingles, hives, urticaria, angiodema, allergic reaction, impetigo, pruritis ani. Vital signs: are WNL, pt. is afebrile ER COURSE: PE consistent with pruritus ani. Excoriations noted. No edema, no palpable mass, no fluctuance or induration, low suspicion for cellulitis or abscess. Will provide patient hydrocortisone and keflex to cover for possible infection. Take Claritin and Benadryl for itching symptoms. ER precautions given. Followup with Derm. DISCHARGE: -Rx given for Hydrocortisone. Do not apply to face or skin creases. -Rx given for Keflex At this time pt. is stable for d/c to home. Patient resting comfortably, in no acute distress, nontoxic appearinge. Will provide printed patient care instructions, and any necessary prescriptions. Care plan and follow up instructions have been discussed with the patient prior to discharge. Patient provided with list of healthcare clinics to establish primary care physician. Patient instructed to follow-up with primary care provider in 3 - 5 days. Patient questions asked and answered. ER precautions given. Patient instructed to return to ER immediately for any new or worsening of symptoms including but not limited to increasing SOB, persistent fever. - Please note that this Emergency Department Report was dictated using [employer] unloader technology software, occasionally this can lead to erroneous entry secondary to interpretation by the dictation equipment. Last Vital Signs Date Time Temp Pulse Resp B/P (MAP) Pulse Ox O2 Delivery O2 Flow Rate FiO2 02/12/18 11:55 98.2 80 18 107/70 95 Room Air Disposition: HOME, SELF-CARE Condition: Stable Scripts Cephalexin* (KEFLEX*) 500 Mg Capsule 500 MG ORAL EVERY 12 HOURS, #14 CAP 0 Refills Prov: Nate Armijo 02/12/18 Hydrocortisone 2% Cream (ANTI-ITCH 2% CREAM) Y Cr 28 GM TP BID, #28 GM Prov: Nate Armijo 02/12/18 Referrals: NOT CHOSEN [facility]/,REFERRING (PCP) Patient Instructions: Rash Additional Instructions: Followup with primary care provider in 3 -5 days. Request referral to dermatology as needed. Do not scratch or itch. Apply cool compresses to affected area. Wash all clothes and bedding. Take medications as directed. Do not apply topical steroid medication to face or skin creases. SE Benadryl drowsiness, do not take prior to drinking, driving, operating heavy machinery. Take Claritin during the day and Benadryl at night for itching symptoms. Patient questions asked and answered. ER precautions given, patient instructed to return to ER immediately for any new or worsening of symptoms. [facility] Nate Armijo Feb 12, 2018 12:38
[2018-02-12 13:01] VITALS: BP 112/67
== END 2018-02-12 13:01 | disposition home or self-care (01) ==
LOC: EMR 12:20
DX: L29.0 Pruritus ani (principal)
CPT/HCPCS: 99283